=== PATIENT | female | born 1970 | race Caucasian/White ===

== ENCOUNTER → 2016-09-02 | Outpatient (CLI) | payer BC | LOC: FIMAGING 13:42 | PROVIDERS: ATTEND Family Medicine | DX: Z12.39 Encounter for other screening for malignant neoplasm of breast (principal); N63 Unspecified lump in breast | CPT/HCPCS: G0204 ==

== ENCOUNTER → 2016-11-29 | Outpatient (CLI) | payer BC | LOC: CIMAGING 16:19 | PROVIDERS: ATTEND Family Medicine | DX: M89.8X7 Other specified disorders of bone, ankle and foot (principal) | CPT/HCPCS: 73630-PO ==

== ENCOUNTER 2017-03-20 09:24 | Emergency (ER) | payer BC ==
[2017-03-20 09:35] VITALS: TEMP 97.9
[2017-03-20] MEDS ORDERED: ASPIRIN 81 MG CHEWABLE TAB PO ONE (09:36)
--- NOTE | 2017-03-20 09:40 | CPEKG ---
Heart Rate: 64 RR Interval: 938 P-R Interval: 152 QRSD Interval: 86 QT Interval: 388 QTC Interval: 401 P Iroquois: 75 QRS [place]roquois: 37 T Wave Iroquois: 47 EKG Severity - BORDERLINE ECG - EKG Impression: SINUS RHYTHM EKG Impression: PROBABLE LEFT ATRIAL ABNORMALITY Electronically Signed By: Jah Munroe 20-Mar-2017 11:44:12
[2017-03-20] MEDS ORDERED: MAG HYDROX/AL HYDROX/SIMETH 30 ML UDCUP PO ONE (09:54)
[2017-03-20 09:56] LABS: % IMMATURE GRANULYOCYTES 0.2 % (0.0-1.1); ABSOLUTE IMMATURE GRANULOCYTES 0.01 10^3/uL (0.00-0.10); ADD DIFF? NO; ADD MORPH? NO; ADD SCAN? NO; ATYPICAL LYMPHOCYTE FLAG 0 (0-99); FRAGMENT RBC FLAG 0 (0-99); HEMATOCRIT 36.7 % (38.0-47.0); HEMOGLOBIN 12.2 g/dL (12.6-16.3); LEFT SHIFT FLG 0 (0-99); LIPEMIA HEMOLYSIS FLAG 80 (0-99); MEAN CELL HEMOGLOBIN CONCENTR. 33.2 g/dL (32.4-36.7); MEAN CELL VOLUME 87.4 fL (81.5-99.8); MEAN PLATELET VOLUME 9.4 fL (8.7-11.7); PLATELET CLUMPS FLAG 0 (0-99); PLATELET COUNT 215 10^3/uL (150-400); RED CELL DISTRIBUTION WIDTH 14.5 % (11.5-15.2)
[2017-03-20 10:14] LABS: ANION GAP 11 mEq/L (8-16); CALCIUM 8.8 mg/dL (8.5-10.4); CARBON DIOXIDE 26 mEq/l (22-31); CHLORIDE 102 mEq/L (97-110); CREATININE 0.8 mg/dL (0.6-1.0); GLOMERULAR FILTRATION RATE > 60; GLUCOSE 92 mg/dL (70-100); POTASSIUM 4.7 mEq/L (3.5-5.2); SODIUM 139 mEq/L (134-144)
[2017-03-20] MEDS ORDERED: ACETAMINOPHEN 500 MG TAB PO ONE (11:10)
[2017-03-20 11:16] LABS: TROPONIN I 0.021 ng/mL (0.000-0.034)
--- NOTE | 2017-03-20 11:30 | EDPHY ---
H & P Stated Complaint: left side cp and shoulder x 48 hours Time Seen by Provider: 03/20/17 09:42 HPI/ROS: This patient complains of and ache in her left upper chest and left lateral neck /trapezius region over the past 48 hours. She explains that she feels that she "can't get comfortable ". She was awakened with the discomfort 2 nights ago and has had less sleep due to the symptoms over the past 2 nights. She has a sense that it may be musculoskeletal but explains that she can't seem to improve her symptoms with stretching. She reports taking ibuprofen 400 mg at 8: 00 a.m. without improvement. She does have a history of a bulging disc in her neck and at times has had radicular symptoms but describes the symptoms more typically sharp in nature down her arm with paresthesias. She has had no sharp pains or paresthesias with these episodes. The pain has been constant since its onset. Peak intensity 7/10, currently 5/10. She drove herself here by private vehicle for further evaluation of her symptoms. ROS: Constitutional: No fevers. No other constitutional symptoms HEENT: Mild nasal congestion without other symptoms for the past 2 days Pulmonary: She will she has mild dyspnea compared to baseline with exertion but no dyspnea at rest. No coughing. No pleuritic pain. Cardiac: No heart palpitations recently. However she has had occasional heart palpitations the past. GI: Mild nausea without vomiting. She does have a history of GERD symptoms but reports no classic GERD symptoms recently. Integumentary: No skin rash or pallor Neuro: No numbness tingling or focal weakness Endocrine: No complaints Complete review of symptoms is otherwise negative. Source: Patient Exam Limitations: No limitations - Medical/Surgical History PMH: Patient also reports history of GERD. She did see a intercell connector placer for this but stopped taking her proton pump inhibitor after her symptoms improved Bulging cervical discs. Patient attends physical therapy every couple weeks for her neck symptoms Hx Asthma: No Hx Chronic Respiratory Disease: No Hx Diabetes: No Hx Cardiac Disease: No Hx Renal Disease: No Hx Cirrhosis: No Hx Alcoholism: No Hx HIV/AIDS: No Hx Splenectomy or Spleen Trauma: No Other PMH: hypothyroid - Family History Significant Family History: No pertinent family hx, Other (No history of premature coronary artery disease. Her mother did have a DVT.) - Social History Smoking Status: Never smoked Alcohol Use: Occasionally Drug Use: None - Physical Exam Exam: Vital signs: Normal with exception of initial mild hypertension at 151/84 General Appearance: Alert, no distress. Eyes: Pupils equal and round no pallor or injection. ENT, Mouth: Mucous membranes moist. Respiratory: There are no retractions, lungs are clear to auscultation. Patient has mild left upper lateral chest wall tenderness but it does not seem entirely reproduces her symptoms. Cardiovascular: Regular rate and rhythm. No murmur gallop rub. No JVD. No peripheral edema. Gastrointestinal: Abdomen is soft and nontender, no masses, bowel sounds normal. Neurological: GCS 15. She maintains normal light touch sensory exam bilateral upper and lower extremities and 5/5 strength throughout upper and lower extremities. Appreciate no focal deficits or radiculopathy. Skin: Warm and dry, no rashes. Musculoskeletal: Neck: No midline tenderness. She has left trapezius muscle tenderness and spasm. She maintains full range of motion in her neck with minimal increase trapezius symptoms with lateral flexion away from the affected side but no radicular symptoms triggered by neck motion. Extremities are symmetrical, full range of motion. Psychiatric: Mood and affect are normal DIFFERENTIAL DIAGNOSIS: After history and physical exam differential diagnosis was considered for GERD with esophagitis or esophageal spasm, cervical radiculopathy, neck strain, ischemic cardiac disease, pulmonary embolism, pneumonia, pneumothorax Constitutional: Initial Vital Signs Temperature (C) 36.6 C 03/20/17 09:31 Heart Rate 76 03/20/17 09:31 Respiratory Rate 20 03/20/17 09:31 Blood Pressure 151/84 H 03/20/17 09:31 O2 Sat (%) 98 03/20/17 09:31 O2 Delivery Mode Room Air Allergies/Adverse Reactions: ANESTHESIA Allergy (Mild, Uncoded 03/20/17 09:30) Vomiting Home Medications: Medication Instructions Recorded Synthroid 11/26/09 LORAZEPAM 03/20/17 Methocarbamol [Robaxin 750 mg (*)] 750 - 1,500 mg PO QID PRN #30 tab 03/20/17 Pantoprazole Sodium [Protonix 40mg 40 mg PO DAILY #30 tab 03/20/17 (*)] Medical Decision Making - Diagnostics EKG Interpretation: 12 lead EKG: Performed at 9:37 a.m. indication chest pain Sinus rhythm at 64 Intervals: P R of 150, QRS of 86, QTC of 401 Bowers: P of 75, QRS of 37, T of 47degrees ST segments: Normal throughout Overall assessment sinus rhythm without evidence of acute ischemia Please refer to trace master for complete read Imaging Results: Imaging Impressions Chest X-Ray 03/20/17 09:54 Impression: No acute findings in the chest. ED Course/Re-evaluation: IV, monitor Aspirin 324 p.o. Maalox Patient requested additional analgesic for her neck discomfort treated with Tylenol p.o. Discussion: After workup, no evidence of pulmonary embolism, pneumothorax or pneumonia. Also, no evidence of coronary syndrome. He did not think she is having ischemic heart symptoms. Palpation in the affected regions partially reproduces symptoms and I think musculoskeletal etiology is likely for the trapezius pain and perhaps radiating into the chest. Other etiology could include GERD with esophageal spasm. I counseled regarding this. Will treat her with methocarbamol muscle relaxant, ibuprofen Tylenol. Also suggested restarting and acid claire for her GERD symptoms. She understands that today' s workup cannot entirely rule out cardiopulmonary pathology and the need to follow up with outpatient physician for any ongoing symptoms. She will return for any significant worsening of her symptoms despite the treatment plan. - Data Points Laboratory Results: Laboratory Results 03/20/17 09:45 03/20/17 09:45 03/20/17 03/20/17 03/20/17 09:50 09:45 09:45 WBC RBC Hgb Hct MCV MCH MCHC RDW Plt Count MPV Neut % (Auto) Lymph % (Auto) Wetzel % (Auto) Eos % (Auto) Baso % (Auto) Nucleat RBC Rel Count Absolute Neuts (auto) Absolute Lymphs (auto) Absolute Monos (auto) Absolute Eos (auto) Absolute Basos (auto) Absolute Nucleated RBC Immature Gran % Immature Gran # D-Dimer 0.33 ug/mLFEU ug/mLFEU (0.00-0.50) Sodium 139 mEq/L mEq/L (134-144) Potassium 4.7 mEq/L mEq/L (3.5-5.2) Chloride 102 mEq/L mEq/L (97-110) Carbon Dioxide 26 mEq/l mEq/l (22-31) Anion Gap 11 mEq/L mEq/L (8-16) BUN 11 mg/dL mg/dL (7-23) Creatinine 0.8 mg/dL mg/dL (0.6-1.0) Estimated GFR > 60 Glucose 92 mg/dL mg/dL (70-100) Calcium 8.8 mg/dL mg/dL (8.5-10.4) Troponin I 0.021 ng/mL ng/mL (0.000-0.034) TSH 0.639 uIU/mL uIU/mL (0.465-4.680) 03/20/17 09:45 WBC 4.15 10^3/uL 10^3/uL (3.80-9.50) RBC 4.20 10^6/uL 10^6/uL (4.18-5.33) Hgb 12.2 g/dL L g/dL (12.6-16.3) Hct 36.7 % L % (38.0-47.0) MCV 87.4 fL fL (81.5-99.8) MCH 29.0 pg pg (27.9-34.1) MCHC 33.2 g/dL g/dL (32.4-36.7) RDW 14.5 % % (11.5-15.2) Plt Count 215 10^3/uL 10^3/uL (150-400) MPV 9.4 fL fL (8.7-11.7) Neut % (Auto) 61.5 % % (39.3-74.2) Lymph % (Auto) 27.7 % % (15.0-45.0) Wetzel % (Auto) 7.7 % % (4.5-13.0) Eos % (Auto) 1.9 % % (0.6-7.6) Baso % (Auto) 1.0 % % (0.3-1.7) Nucleat RBC Rel Count 0.0 % % (0.0-0.2) Absolute Neuts (auto) 2.55 10^3/uL 10^3/uL (1.70-6.50) Absolute Lymphs (auto) 1.15 10^3/uL 10^3/uL (1.00-3.00) Absolute Monos (auto) 0.32 10^3/uL 10^3/uL (0.30-0.80) Absolute Eos (auto) 0.08 10^3/uL 10^3/uL (0.03-0.40) Absolute Basos (auto) 0.04 10^3/uL 10^3/uL (0.02-0.10) Absolute Nucleated RBC 0.00 10^3/uL 10^3/uL (0-0.01) Immature Gran % 0.2 % % (0.0-1.1) Immature Gran # 0.01 10^3/uL 10^3/uL (0.00-0.10) D-Dimer Sodium Potassium Chloride Carbon Dioxide Anion Gap BUN Creatinine Estimated GFR Glucose Calcium Troponin I TSH Medications Given: Discontinued Medications Acetaminophen (Tylenol) 1,000 mg PO EDNOW ONE Stop: 03/20/17 11:11 Last Admin: 03/20/17 11:16 Dose: 1,000 mg Al Hydroxide/Mg Hydroxide (Maalox Susp) 30 ml PO EDNOW ONE Stop: 03/20/17 09:55 Last Admin: 03/20/17 10:00 Dose: 30 ml Aspirin (Aspirin) 324 mg PO EDNOW ONE Stop: 03/20/17 09:37 Last Admin: 03/20/17 09:39 Dose: 324 mg Departure - Departure Disposition: Home, Routine, Self-Care Clinical Impression: Chest pain Qualifiers: Chest pain type: precordial pain Qualified Code(s): R07.2 - Precordial pain Neck muscle strain Qualifiers: Encounter type: initial encounter Qualified Code(s): S16.1XXA - Strain of muscle, fascia and tendon at neck level, initial encounter Condition: Good Instructions: Chest Pain (ED), Acute Neck Pain (ED) Additional Instructions: Diagnoses: 1. Chest pain 2. Trapezius muscle strain and neck pain Plan: Continue ibuprofen Add Tylenol Methocarbamol muscle relaxant in addition if needed Continue daily gentle stretches. If you have ongoing chest discomfort, consider restarting and acid claire such as the Protonix proton pump inhibitor other prescribed or other. Also Maalox in addition if needed. Follow up with primary care physician for any ongoing symptoms Return for any significant worsening of her symptoms despite the treatment plan. Referrals: Linda Shaver MD [Primary Care Provider] - As per Instructions Prescriptions: Methocarbamol [Robaxin 750 mg (*)] 750 - 1,500 mg PO QID PRN #30 tab PRN Reason: Muscle Spasms Pantoprazole Sodium [Protonix 40mg (*)] 40 mg PO DAILY #30 tab
[2017-03-20 12:59] VITALS: BP 125/83; PULSE 65; RESP 16; O2SAT 100
== END 2017-03-20 12:40 | disposition home or self-care (01) ==
LOC: CED 09:24
DX: S16.1XXA Strain of muscle, fascia and tendon at neck level, initial encounter (principal); R07.2 Precordial pain; X58.XXXA Exposure to other specified factors, initial encounter
CPT/HCPCS: 71020-PO; 80048-PO; 84443-PO; 84484-PO; 85025-PO; 85378-PO

== ENCOUNTER → 2017-04-05 | Outpatient (CLI) | payer BC | LOC: CIMAGING 11:44 | PROVIDERS: ATTEND Podiatrist | DX: M79.672 Pain in left foot (principal); R93.6 Abnormal findings on diagnostic imaging of limbs | CPT/HCPCS: 73630-PO ==

== ENCOUNTER → 2018-10-09 | Outpatient (CLI) | payer OTHER | LOC: CIMAGING 07:17 ==